=== PATIENT | female | born 1975 | race African-American/Black ===

== ENCOUNTER 2016-05-05 09:08 | Emergency (ER) | payer OTHER ==
[2016-05-05 09:12] VITALS: TEMP 98; BMI 23.1
--- NOTE | 2016-05-05 09:24 | PDOC ---
History of Present Illness - General History Source: Patient Exam Limitations: No Limitations - History of Present Illness Initial Comments: 05/05/16 09:35 The patient is a 40 year old female with significant past medical history of tubal ligation who presents to the emergency department with left flank pain for 2 days. She states her pain started suddenly and has been constant since. Her pain is localized to the left flank and radiates to the left lower abdomen. She reports associated nausea and vomiting for the last day. She is unable to keep anything down. She denies any dysuria, hematuria, and frequency. The patient has had kidney stones and UTIs in the past. She denies any fevers or chills. <Karime Barrientos - Last Filed: 05/05/16 09:35> <Magdiel Elizabeth - Last Filed: 05/05/16 11:53> - General Chief Complaint: Pain Stated Complaint: VOMITING, BACK PAIN Time Seen by Provider: 05/05/16 09:24 Past History <Karime Barrientos - Last Filed: 05/05/16 09:35> - Past Medical History Other medical history: possible kidney stone in past, UTI - Psycho/Social/Smoking Cessation Hx Suicidal Ideation: No Smoking History: Never smoked Information on smoking cessation initiated: No Hx Alcohol Use: No Drug/Substance Use Hx: No Substance Use Type: None <Magdiel Elizabeth - Last Filed: 05/05/16 11:53> - Past Medical History Allergies/Adverse Reactions: Allergies Allergy/AdvReac Type Severity Reaction Status Date / Time No Known Allergies Allergy Verified 05/05/16 09:12 Home Medications: Ambulatory Orders NK [No Known Home Medication] 05/05/16 Review of Systems - Review of Systems Able to Perform ROS?: Yes Comments:: 05/05/16 09:35 GENERAL/CONSTITUTIONAL: No fever or chills. No weakness. HEAD, EYES, EARS, NOSE AND THROAT: No change in vision. No ear pain or discharge. No sore throat. CARDIOVASCULAR: No chest pain or shortness of breath. RESPIRATORY: No cough, wheezing, or hemoptysis. GASTROINTESTINAL: +Nausea, +vomiting. No diarrhea or constipation. GENITOURINARY: No dysuria, frequency, or change in urination. MUSCULOSKELETAL: +Left flank pain. No joint or muscle swelling or pain. No neck pain. SKIN: No rash NEUROLOGIC: No headache, vertigo, loss of consciousness, or change in strength/ sensation. ENDOCRINE: No increased thirst. No abnormal weight change. HEMATOLOGIC/LYMPHATIC: No anemia, easy bleeding, or history of blood clots. ALLERGIC/IMMUNOLOGIC: No hives or skin allergy. <Karime Barrientos - Last Filed: 05/05/16 09:35> *Physical Exam - Vital Signs Last Vital Signs Temp Pulse Resp BP Pulse Ox 98 F 81 18 116/74 99 05/05/16 09:10 05/05/16 09:10 05/05/16 09:10 05/05/16 09:10 05/05/16 09:10 - Physical Exam Comments: 05/05/16 09:35 GENERAL: Awake, alert, and fully oriented, in no acute distress HEAD: No signs of trauma EYES: PERRLA, EOMI, sclera anicteric, conjunctiva clear ENT: Auricles normal inspection, hearing grossly normal, nares patent, oropharynx clear without exudates. Moist mucosa NECK: Normal ROM, supple, no lymphadenopathy, JVD, or masses LUNGS: Breath sounds equal, clear to auscultation bilaterally. No wheezes, and no crackles HEART: Regular rate and rhythm, normal S1 and S2, no murmurs, rubs or gallops ABDOMEN: +Left CVA tenderness. Soft, nontender, normoactive bowel sounds. No guarding, no rebound. No masses EXTREMITIES: Normal range of motion, no edema. No clubbing or cyanosis. No cords, erythema, or tenderness NEUROLOGICAL: Cranial nerves II through XII grossly intact. Normal speech, normal gait SKIN: Warm, Dry, normal turgor, no rashes or lesions noted. <Karime Barrientos - Last Filed: 05/05/16 09:35> - Vital Signs Last Vital Signs Temp Pulse Resp BP Pulse Ox 98 F 81 18 116/74 99 05/05/16 09:10 05/05/16 09:10 05/05/16 09:10 05/05/16 09:10 05/05/16 09:10 <Magdiel Elizabeth - Last Filed: 05/05/16 11:53> ED Treatment Course - LABORATORY CBC & Chemistry Diagram: 05/05/16 09:47 05/05/16 09:47 <Magdile Elizabeth - Last Filed: 05/05/16 11:53> *DC/Admit/Observation/Transfer - Attestations Scribe Attestion: 05/05/16 09:25 Documentation prepared by Karime Barrientos, acting as medical massage therapist for Magdiel Elizabeth DO. <Karime Barrientos - Last Filed: 05/05/16 09:35> - Discharge Dispostion Admit: No Decision to Admit order Date/Time: 05/05/16 11:49 - Attestations Physician Attestion: 05/05/16 09:24 I, Dr. Magdiel Elizabeth, attest that this document has been prepared under my direction and personally reviewed by me in its entirety. I further attest, that it accurately reflects all work, treatment, procedures and medical decision -making performed by me. <Magdiel Elizabeth - Last Filed: 05/05/16 11:53> Diagnosis at time of Disposition: Ureteral calculi - Discharge Dispostion Disposition: HOME Condition at time of disposition: Good - Referrals Referrals: Jose Luis Burkett MD [Primary Care Provider] - Eligio Faria MD [Staff Physician] - - Patient Instructions Printed Discharge Instructions: DI for Kidney Stones Additional Instructions: Khadijah- It was a pleasure to care for you today. Please call Dr. Faria for follow up. Use the pain medicine and the nausea medicine only if you need it. Return to us if worse or any problems develop. Best- Dr. Magdiel Elizabeth - Post Discharge Activity Work/School Note: Back to Work
[2016-05-05] MEDS ORDERED: ONDANSETRON *ODT* 4 MG TABLET SL ONE (09:30)
[2016-05-05] MEDS ORDERED: ONDANSETRON 8 MG TABLET (FP) PO ONE (09:33)
[2016-05-05 10:03] LABS: URINE APPEARANCE CLEAR; URINE BILIRUBIN NEGATIVE (NEGATIVE); URINE COLOR LTYELLOW; URINE GLUCOSE (UA) NEGATIVE (NEGATIVE); URINE KETONE NEGATIVE (NEGATIVE); URINE LEUK ESTERASE NEGATIVE (NEGATIVE); URINE NITRITE NEGATIVE (NEGATIVE); URINE PROTEIN NEGATIVE (NEGATIVE); URINE UROBILINOGEN NEGATIVE E.U./dl (0.2-1.0)
[2016-05-05 10:07] LABS: URINE BLOOD 1+ (NEGATIVE)
[2016-05-05 10:08] LABS: BASOPHIL 1.2 % (0-2.0); EOSINOPHIL 3.2 % (0-4.5); MCH 23.3 pg (25.7-33.7); MCHC 31.8 g/dl (32.0-36.0); MEAN CELL VOLUME 73.3 fl (80-96); MEAN PLT VOLUME 7.6 fl (7.5-11.1); NEUTROPHILS 58.6 % (42.8-82.8); PLATELET COUNT 264 K/MM3 (134-434); RDW 22.8 % (11.6-15.6); URINE RBC 1 /hpf (0-3); URINE WBC 2 /hpf (3-5); WHITE BLOOD COUNT 5.6 K/mm3 (4.0-10.0)
[2016-05-05 10:23] LABS: ALBUMIN 3.7 g/dl (3.4-5.0); CALCIUM 9.4 mg/dL (8.5-10.1); CREATININE 1.3 mg/dL (0.55-1.02)
[2016-05-05 11:45] VITALS: BP 102/72; PULSE 65
== END 2016-05-05 12:02 | disposition home or self-care (01) ==
LOC: JER 09:08
DX: N20.2 Calculus of kidney with calculus of ureter (principal); Z87.442 Personal history of urinary calculi
CPT/HCPCS: 36415; 74176-TC; 80053; 81003; 81015; 85025; 99283-25

== ENCOUNTER 2016-09-11 13:55 | Emergency (ER) | payer OTHER ==
[2016-09-11 14:11] VITALS: TEMP 9.5; BMI 23.5
[2016-09-11] MEDS ORDERED: FAMOTIDINE 20 MG/50 ML IVPB 20 MG in PREMIX 50 IVPB ONE (14:49)
[2016-09-11] MEDS ORDERED: MAG HYDROX/AL HYDROX/SIMETH 355 ML ORAL.SUSP PO ONE (14:49)
--- NOTE | 2016-09-11 14:49 | PDOC ---
History of Present Illness - General History Source: Patient, Old Records Exam Limitations: No Limitations - History of Present Illness Initial Comments: 09/11/16 15:04 <MoralesKaylan - Last Filed: 09/11/16 15:04> - General History Source: Patient Exam Limitations: No Limitations - History of Present Illness Travel History: No Initial Comments: 09/11/16 17:44 The patient is a 41-year-old woman with no past medical history who presents to the emergency department via walk-in for further evaluation of chest pain for the past weeks. She describes her pain as intermittent mid-sternal pulsating sensations with associated chest tightness that radiate up to her throat. The syptoms seem exacerbated when she is swallowing and she feels a tightness in hre throat after swallowing. She reports that for the past 2 days, her symptoms have worsened, as her chest tightness became constant. She also notes strating a recent diet change, approximately 2 weeks ago, where she is cutting down on her carbohydrate intake and has been making more juices at home (blueberries; spinach, strawberries). She notes that when ingesting solid foods, her symptoms are exacerbated but when intaking her smoothies or other liquids, her pain is not exacerbated. She also reports starting at the gym and reports doing both cardiovascular and weightlifting exercises. She does not report any exacerbation of her pain when performing her exercises. She notes that she had similar symptoms in the past for which it was only present around her throat area- not involving her chest. She was informed that her symptoms were allergy related and was given Claritin that helped resolve her symptoms. She believes that her present symptoms might have been due to a similar cause. She took turmeric and a Claritin, which helped temporarily with her pain. She denies any fever, chills, weakness, neck pain, sore throat, cough, hemoptysis, difficult speaking or voice changes, shortness of breath, nausea, vomiting,urinary/bowel complaints. No associted leg swelling. Allergies: No Known Drug Allergies Past Surgical History: Tubal Ligation Social History: No tobacco, EtOH and recreational drug use. Primary Care Physician: N/A <Hector Urbina - Last Filed: 09/11/16 17:45> - General Chief Complaint: Chest Pain Stated Complaint: CHEST DISCOMFORT Time Seen by Provider: 09/11/16 14:24 Past History <Kaylan Morales - Last Filed: 09/11/16 15:04> - Psycho/Social/Smoking Cessation Hx Suicidal Ideation: No Smoking History: Never smoked Information on smoking cessation initiated: No Hx Alcohol Use: No Drug/Substance Use Hx: No Substance Use Type: None <Hector Urbina - Last Filed: 09/11/16 17:45> - Past Medical History Allergies/Adverse Reactions: Allergies Allergy/AdvReac Type Severity Reaction Status Date / Time No Known Allergies Allergy Verified 09/11/16 14:11 Home Medications: Ambulatory Orders Ranitidine [Zantac -] 150 mg PO DAILY #14 tablet 09/11/16 Review of Systems - Review of Systems Able to Perform ROS?: Yes Comments:: 09/11/16 15:04 <Kaylan Morales - Last Filed: 09/11/16 15:04> - Review of Systems Able to Perform ROS?: Yes Comments:: 09/11/16 17:45 CONSTITUTIONAL: No reported: Fever, Chills, Diaphoresis, Generalized Weakness, Malaise, Loss of Appetite HEENT: Reported: Throat Discomfort. No reported: Rhinorrhea, Nasal Congestion, Throat Pain, Throat Swelling, Difficulty Swallowing, Mouth Swelling, Ear Pain, Eye Pain , Visual Changes CARDIOVASCULAR: Reported: Chest Pain. No reported: Syncope, Palpitations, Irregular Heart Rate, Lightheadedness, Peripheral Edema RESPIRATORY: No reported: Cough, Shortness of Breath, SOB with Exertion, Orthopnea, Wheezing , Stridor, Hemoptysis GASTROINTESTINAL: No reported: Abdominal pain, Abdominal Distension, Nausea, Vomiting, Diarrhea, Constipation, Melena, Hematochezia GENITOURINARY: No reported: Dysuria, Frequency, Urgency, Hesitancy, Flank Pain, Genital Pain MUSCULOSKELETAL: No reported: Myalgia, Arthralgia, Joint Swelling, Back pain, Neck Pain SKIN: No reported: Rash, Itching, Pallor HEMEATOLOGIC/IMMUNOLOGIC: No reported: Easy Bleeding, Easy Bruising, Lymphadenopathy, Frequent infections ENDOCRINE: No reported: Unexplained Weight Gain, Unexplained Weight Loss, Heat Intolerance , Cold Intolerance NEUROLOGIC: No reported: Headache, Focal Weakness, Paresthesias, Vertigo, Lightheadedness, Unsteady Gait, Seizure, Mental Status Changes, Incontinence PSYCHIATRIC: No reported: Anxiety, Depression <Carlitos,Hector - Last Filed: 09/11/16 17:45> *Physical Exam - Vital Signs Last Vital Signs Temp Pulse Resp BP Pulse Ox 9.5 F L 76 18 125/79 100 09/11/16 14:07 09/11/16 14:07 09/11/16 14:07 09/11/16 14:07 09/11/16 14:07 - Physical Exam Comments: 09/11/16 15:04 <Kaylan Morales - Last Filed: 09/11/16 15:04> - Vital Signs Last Vital Signs Temp Pulse Resp BP Pulse Ox 9.5 F L 76 18 125/79 100 09/11/16 14:07 09/11/16 14:07 09/11/16 14:07 09/11/16 14:07 09/11/16 14:07 - Physical Exam Comments: 09/11/16 17:45 GENERAL: The patient is awake, alert, and fully oriented, Nontoxic - in no acute distress. HEAD: Normocephalic, atraumatic. EYES: extraocular movements intact, sclera anicteric, conjunctiva clear. ENT: Normal voice, Moist mucous membranes. Airway patent. NECK: Normal range of motion, supple LUNGS: Breath sounds equal, clear to auscultation bilaterally. No wheezes, no rhonchi, no rales. HEART: Regular rate and rhythm, without murmur, rub or gallop. ABDOMEN: Soft, nontender, normoactive bowel sounds. No guarding, no rebound.No CVA tenderness EXTREMITIES: Normal range of motion, no edema. No clubbing or cyanosis. No cords, erythema, or tenderness. NEUROLOGICAL: No facial assymetry, Normal speech, PSYCH: Normal mood, normal affect. SKIN: Warm, Dry, normal turgor. <Hector Urbina - Last Filed: 09/11/16 17:45> Heart Score/ECG Review - ECG Impressions Comment:: 09/11/16 15:32 Twelve-lead EKG was performed and reviewed by me. There is normal sinus rhythm with a normal rate. Rate of 69 The axis is normal. The intervals are normal. There is normal R wave progression There are no ST or T wave abnormalities. <Hector Urbina - Last Filed: 09/11/16 17:45> ED Treatment Course - LABORATORY CBC & Chemistry Diagram: 09/11/16 15:00 09/11/16 15:00 <Hector Urbina - Last Filed: 09/11/16 17:45> Medical Decision Making - Medical Decision Making 09/11/16 15:31 41y F presenting with chest tightness worse when she eats, no associated cough, sob, tarango, hemoptysis, leg swelling. exam unremarkble suspec tpossible gastritis/gerd, possible esophageal spasm? will ck labs to r/o anemia, metabolic dernagement, pancreatitis non exertional, no cardiach istory, doubt acs, will obtain screening ekg will give pepcid/maalox 09/11/16 16:55 lbas reviewed unremarkable pt feels improved. will dc the pt with zantac, maalox, and decreasing amount of spicy foods and caffeiene if not improved will have her fu with GI and PMD return precautions were discussed I discussed the physical exam findings, ancillary test results and final diagnoses with the patient. I answered all of the patient's questions. The patient was satisfied with the care received and felt comfortable with the discharge plan and treatment plan. The patient will call their primary care physician within 24 hours to arrange follow-up and will return to the Emergency Department with any new, persistent or worsening symptoms. <Hector Urbina - Last Filed: 09/11/16 17:45> *DC/Admit/Observation/Transfer - Attestations Scribe Attestion: 09/11/16 15:04 Documentation prepared by Kaylan Morales, acting as senior medical transcriptionist for Hector Urbina MD. <Kaylan Morales - Last Filed: 09/11/16 15:04> - Discharge Dispostion Admit: No <Hector Urbina - Last Filed: 09/11/16 17:45> Diagnosis at time of Disposition: GERD (gastroesophageal reflux disease) Qualifiers: Esophagitis presence: without esophagitis Qualified Code(s): K21.9 - Gastro- esophageal reflux disease without esophagitis - Prescriptions Prescriptions: Ranitidine [Zantac -] 150 mg PO DAILY #14 tablet - Referrals Referrals: Jose Luis Burkett MD [Staff Physician] - Lino Holder MD [Staff Physician] - - Patient Instructions Printed Discharge Instructions: DI for Atypical Chest Pain, GERD Diet, DI for Gastroesophageal Reflux Disease (GERD) Additional Instructions: Return to the emergency department immediately with ANY new, persistent or worsening symptoms including any recurrent abdominal pain, fevers, chills, inability to tolerate oral intake or any other concerns. Stay away from alcohol, spicy foods, caffeine, acidic/sour foods. Take maalox if you have burning for relief. Continue using zantac every night for two week. You MUST call and follow up with your doctor and art handler within 5 days for further evaluation of your symptoms. Your emergency department visit is not complete without a followup with your doctor for reevaluation. Results were discussed with you. Please make sure your doctor reviews the results of your emergency evaluation. If sypmtoms are not improved, please follow up with Gastroenterolgist. Consider possible esophageal spasm as a cause of your sypmtoms. Print Language: NIGERIAN
[2016-09-11] MEDS ORDERED: FAMOTIDINE 20 MG/50 ML IVPB 50 ML IVPB ONE (15:07)
[2016-09-11] MEDS ORDERED: MAG HYDROX/AL HYDROX/SIMETH 30 ML UNIT-DOSE CUP ONE (15:07)
[2016-09-11 15:10] LABS: BASOPHIL 1.3 % (0-2.0); EOSINOPHIL 5.8 % (0-4.5); MCH 24.3 pg (25.7-33.7); MCHC 31.7 g/dl (32.0-36.0); MEAN CELL VOLUME 76.8 fl (80-96); MEAN PLT VOLUME 7.5 fl (7.5-11.1); NEUTROPHILS 43.3 % (42.8-82.8); PLATELET COUNT 223 K/MM3 (134-434); RDW 16.4 % (11.6-15.6); WHITE BLOOD COUNT 5.1 K/mm3 (4.0-10.0)
[2016-09-11 15:12] LABS: URINE APPEARANCE CLEAR; URINE BILIRUBIN NEGATIVE (NEGATIVE); URINE BLOOD NEGATIVE (NEGATIVE); URINE COLOR LTYELLOW; URINE GLUCOSE (UA) NEGATIVE (NEGATIVE); URINE KETONE NEGATIVE (NEGATIVE); URINE LEUK ESTERASE NEGATIVE (NEGATIVE); URINE NITRITE NEGATIVE (NEGATIVE); URINE PROTEIN NEGATIVE (NEGATIVE); URINE UROBILINOGEN NEGATIVE mg/dL (0.2-1.0)
[2016-09-11 15:38] LABS: ALBUMIN 3.6 g/dl (3.4-5.0); ALK PHOS 49 U/L (45-117); ANION GAP 7 (8-16); BILIRUBIN,TOTAL 0.5 mg/dL (0.2-1.0); CALCIUM 9.1 mg/dL (8.5-10.1); CO2 26 mmol/L (21-32); CREATININE 0.8 mg/dL (0.55-1.02); GLUCOSE,RANDOM 79 mg/dL (74-106); SGOT/AST 12 U/L (15-37); SGPT/ALT 20 U/L (12-78); TOT PROT 6.6 g/dl (6.4-8.2)
[2016-09-11 17:21] LABS: TROPONIN I < 0.02 ng/ml (0.00-0.05)
[2016-09-11 17:43] VITALS: BP 118/60; PULSE 80
--- NOTE | 2016-09-12 12:22 | EKG ---
Test Reason : Blood Pressure : / mmHG Vent. Rate : 069 BPM Atrial Rate : 069 BPM P-R Int : 186 ms QRS Dur : 082 ms QT Int : 394 ms P-R-T Axes : 079 056 060 degrees QTc Int : 422 ms NORMAL SINUS RHYTHM POSSIBLE LEFT ATRIAL ENLARGEMENT BORDERLINE ECG NO PREVIOUS ECGS AVAILABLE Confirmed by SAPPHIRE HEARN MD ([id number]) on 09/12/2016 12:21:33 PM Referred By: Confirmed By:SAPPHIRE HEARN MD
== END 2016-09-11 17:43 | disposition home or self-care (01) ==
LOC: JER 13:55
PROC: 3E033GQ Introduction of Glucarpidase into Peripheral Vein, Percutaneous Approach (ICD-10-PCS; principal; 2016-09-11)
DX: K21.9 Gastro-esophageal reflux disease without esophagitis (principal)
CPT/HCPCS: 36415; 80053; 81003; 82550; 83690; 84484; 84703; 85025; 93005; 93010; 99285-25